=== PATIENT | female | born 1970 | race Caucasian/White ===

== ENCOUNTER 2024-12-17 06:38 | Day surgery (SDC) | payer OTHER, SELFPAY ==
[2024-12-17 06:50] VITALS: BMI 21.5
[2024-12-17 07:19] VITALS: BP 147/100
[2024-12-17 07:24] LABS: HCG, Urine Qualitative Screen Negative
[2024-12-17 08:37] VITALS: BP 150/81
--- NOTE | 2024-12-17 12:50 | ITS.EPS ---
[employer] - EPS Report
EPS
Procedure Report:
IMPLANTED LOOP MONITOR REMOVAL
Date of Procedure: December 17, 2024
Primary Care Physician: Dr. Bárbara Miranda
Referring Online Education Manager: Dr. Cuong Saleh
Proocedure performed:
1. Removal of implanted LINQ loop recorder
Indication for procedure:
Description of procedure: After informed consent was obtained,'time out' was called and confirmed, the patient was prepped and draped in a sterile fashion. Lidocaine with epi was used for local anesthesia. A 1cm incision was made above the
device and the device was removed without difficulty. The skin was closed with absorbable sutures in typical fashion. Steri-strips were applied.
Complications: None
CONCLUSIONS/RECOMMENDATIONS:
1. Successful removal of LINQ implanted loop recorder.
2. Follow-up as scheduled.
== END 2024-12-17 08:47 | disposition home or self-care (01) ==
LOC: CATH 06:38
PROVIDERS: ATTENDING PHYSICIAN Internal Medicine Interventional Cardiology; FAMILY PHYSICIAN Internal Medicine; OTHER PHYSICIAN Internal Medicine Cardiovascular Disease
DX: Z09 Encounter for follow-up examination after completed treatment for conditions other than malignant neoplasm (principal); I10 Essential (primary) hypertension; Z86.73 Personal history of transient ischemic attack (TIA), and cerebral infarction without residual deficits
CPT/HCPCS: 33286; 81025

== ENCOUNTER → 2024-12-23 15:11 | Outpatient (REF) | payer OTHER, SELFPAY | LOC: DHSLP 15:11 | PROVIDERS: ATTENDING PHYSICIAN Internal Medicine Cardiovascular Disease; FAMILY PHYSICIAN Internal Medicine | DX: G47.30 Sleep apnea, unspecified (principal); R06.83 Snoring | CPT/HCPCS: 95800 ==